=== PATIENT | female | born 1960 ===

== ENCOUNTER 2024-02-20 13:36 | Outpatient (REF) | payer MEDICARE, MEDICAID, SELFPAY ==
--- NOTE | 2024-02-20 15:42 | MHC.AU.HA1 ---
Hearing Aid Evaluation Date of Visit: 02/20/24 Historical Information: Description of Hearing: Normal sloping to moderately severe sensorineural hearing loss right, mild sloping to moderately severe sensorineural hearing loss left. Summary: Seen for evaluation. Difficulty hearing family noted. Reviewed amplification options. Recommended [facility]. Pt would like rechargeable. Would like to connect with Android phone to hear calls better. Hearing Aid Prescription: Based on the individual?s shared listening needs, communication environments, dexterity, desire for connectivity, and personal preferences, the following prescription for amplification has been made: Right ear: Make, Model, Color: Phonak Audeo L 70 R , sand beige Battery Size: Rechargeable Nurses' Association Counselor/Slim Tube: 1M Type of Earmold/Dome/CShell/SlimTip: sm vented Left ear: Make, Model, Color: Phonak Audeo L70 R , sand beige Battery Size: Rechargeable Nurses' Association Counselor/Slim Tube: 1M Type of Earmold/Dome/CShell/SlimTip: sm vented Plan of Care: Patient wishes to purchase hearing aids as prescribed Action Taken/Action Needed: Medical Clearance to be requested from PCP/ENT Comments: Pt to seek cerumen removal Ad prior to fitting. Primary Diagnosis: H90.3 Bilateral Sensorineural Hearing Loss Signature: Provider: Azar Wharton, [facility]
== END 2024-02-20 13:37 | disposition home or self-care (01) ==
LOC: HO.SH 13:36
PROVIDERS: Visit Provider Physician Assistant
DX: Z01.118 Encounter for examination of ears and hearing with other abnormal findings (principal); Z46.1 Encounter for fitting and adjustment of hearing aid; H90.3 Sensorineural hearing loss, bilateral
CPT/HCPCS: 92557; 92567; 92591

== ENCOUNTER 2024-03-25 14:09 | Outpatient (REF) | payer MEDICARE, MEDICAID, SELFPAY ==
--- NOTE | 2024-03-25 14:47 | MHC.AU.HA2 ---
Hearing Instrument Fitting- Adult- Binaural Date of Visit: 03/25/24 Summary: Here for fitting. Reports cerumen removal at urgent care. Reports right ear feels totally blocked following flushing. Otoscopy reveals visually occluding cerumen Ad, non occluding As. Cannot complete fitting today with occluding wax in the ear. María Peraza reports she has been using debrox since the flushing. As her insurance cannot be billed for wax removal by audiologists, recommended removal at PCP or returning to urgent care. Suggested using debrox prior to cerumen removal appointment to aid in removal. María Peraza reports she has tried using bulb syringe and may try that again, suggested doing so in conjunction with debrox use. She will call to schedule fitting once wax is removed. Recommendations: Recommendations: Pt to schedule fitting once ear is cleared of wax. Diagnosis Code(s): Primary Diagnosis: H90.3 Bilateral Sensorineural Hearing Loss Signature: Provider: Azar Wharton, CCC-A
== END 2024-03-25 14:10 | disposition home or self-care (01) ==
LOC: HO.HAP 14:09
PROVIDERS: Visit Provider Internal Medicine
DX: Z13.89 Encounter for screening for other disorder (principal)

== ENCOUNTER 2024-04-13 14:47 | Outpatient (REF) | payer MEDICARE, MEDICAID, SELFPAY ==
--- NOTE | 2024-04-13 16:14 | MHC.AU.HA2 ---
Hearing Instrument Fitting- Adult- Binaural Date of Visit: 04/13/24 Hearing Instruments Dispensed: Right Ear: Make, Model, Color, Serial Number: Phonak Audeo L 70 R , lesly zaldivar S#[id number] S[employer]hire Stylus Grinder Repair Warranty: 03/28/2027 [employer] Stylus Grinder Loss and Damage Warranty: 03/28/2027 [facility] Service Plan: 04/13/2025 Battery Size: Rechargeable Information Technology Director/Slim Tube: 0M Earmold/Dome/CShell/SlimTip: sm vented Type of Wax Guard: cerustop Left Ear: Make, Model, Color, Serial Number: Phonak Audeo L70 R , lesly benancy S#[id number] S[employer]hire Stylus Grinder Repair Warranty: 03/28/2027 [employer] Stylus Grinder Loss and Damage Warranty: 03/28/2027 [facility] Service Plan: 04/13/2025 Battery Size: Rechargeable Information Technology Director/Slim Tube: 0M Earmold/Dome/CShell/SlimTip: sm vented Type of Wax Guard: cerustop Accessories/Assistive Technology: Summary of Fitting: Pt. reports wax has been removed. Otoscopy clear Au. Fit with and oriented to binaural Phonak Audeo L70 R HAs. Programmed to DSL 5 adult targets. Ran feedback manager global. Reviewed maintenance and precautions. Practiced insertion and removal. Demonstrated charging. VC disabled. Paired with phone. Counseled on adjustment to amplification. Recommendations: Recommendations: Hearing instrument care and maintenance were discussed and practiced. The instrument(s) were paired to the patient's smartphone. A hearing instrument follow-up was scheduled. Diagnosis Code(s): Primary Diagnosis: H90.3 Bilateral Sensorineural Hearing Loss Signature: Provider: Azar Wharton, CCC-A
== END 2024-04-13 14:48 | disposition home or self-care (01) ==
LOC: HO.HAP 14:47
PROVIDERS: PCP Physician Assistant; Visit Provider Internal Medicine
DX: Z46.1 Encounter for fitting and adjustment of hearing aid (principal); H90.3 Sensorineural hearing loss, bilateral
CPT/HCPCS: V5011; V5020; V5160; V5261

== ENCOUNTER 2024-04-30 13:41 | Outpatient (REF) | payer MEDICARE, MEDICAID, SELFPAY ==
--- NOTE | 2024-04-30 14:17 | MHC.AU.HA3 ---
Hearing Instrument Follow-Up- Binaural Date of Visit: 04/30/24 Right Ear: Model Alfonso, Color, Serial Number: Antony Lopez L 70 R lesly S#[id number] Brace End [employer] Former Repair Warranty: 03/28/2027 [employer] Former Loss and Damage Warranty: 03/28/2027 [facility] Service Plan: 04/13/2025 Battery Size: Rechargeable Global Implementation Manager/Slim Tube: 0M Earmold/Dome/CShell/SlimTip:CAP Type of Wax Guard: cerustop Dispensed By: [facility] Date of Fittin04/13/2024 Left Ear: Model Alfonso, Color, Serial Number: Antony Hopper70 R lesly S#[id number] Brace End [employer] Former Repair Warranty: 03/28/2027 [employer] End [employer] Former Loss and Damage Warranty: 03/28/2027 [facility] Service Plan: 04/13/2025 Battery Size: Rechargeable Global Implementation Manager/Slim Tube: 0M Earmold/Dome/CShell/SlimTip: CAP Type of Wax Guard: cerustop Dispensed By: [facility] Date of Fittin04/13/24 Follow-Up Summary: Here for follow up. Reports feeling like the TV is still not loud enough. She isn't sure if the hearing aids are getting far enough into her ears. The small vented domes just fit into the aperture of her canals. Swapped to cap domes. Improvement reported, feels like she is hearing more with them. Changed acoustic settings in target, ran feedback senior safety support manager. Follow up again in 2 weeks. Needs package of cap domes. Recommendations: Recommendations: An additional follow-up was scheduled to monitor progress. Diagnosis Code(s): Primary Diagnosis: H90.3 Bilateral Sensorineural Hearing Loss Signature: Provider: Azar Wharton, [facility]
== END 2024-04-30 13:42 | disposition home or self-care (01) ==
LOC: HO.HAP 13:41
PROVIDERS: Visit Provider Physician Assistant
DX: Z13.89 Encounter for screening for other disorder (principal)

== ENCOUNTER 2024-05-21 16:00 | Outpatient (REF) | payer MEDICARE, MEDICAID, SELFPAY ==
--- NOTE | 2024-05-21 16:21 | MHC.AU.HA3 ---
Hearing Instrument Follow-Up- Binaural Date of Visit: 05/21/24 Right Ear: Alfonso, , Color, Serial Number: Antony Lopez L 70 R , lesly zaldivar S#[id number] Bookmobile Clerk Repair Warranty: 03/28/2027 [employer] Clerk Loss and Damage Warranty: 03/28/2027 [facility] Service Plan: 04/13/2025 Battery Size: Rechargeable Entry Level Staff Accountant/Slim Tube: 0M Earmold/Dome/CShell/SlimTip:CAP Type of Wax Guard: cerustop [place] [facility] [place]24 Left Ear: Alfonso, , Color, Serial Number: Antony Hopper70 R lesly S#[id number] [employer]mobile Clerk Repair Warranty: 03/28/2027 [employer] Clerk Loss and Damage Warranty: 03/28/2027 [facility] Service Plan: 04/13/2025 Battery Size: Rechargeable Entry Level Staff Accountant/Slim Tube: 0M Earmold/Dome/CShell/SlimTip: CAP Type of Wax Guard: cerustop [place] [facility] [place] Follow-Up Summary: Reports good satisfaction with aids since switching to cap domes. Provided patient with a package of the cap domes. Notes right sheet metal worker supervisor feels like it might come out of ear at times. Tail was rather curled up, put on a new tail, improvement reported, will see how it feels over time. Return with any concerns. Recommendations: Recommendations: Hearing instrument follow-up or maintenance as needed. Diagnosis Code(s): Primary Diagnosis: H90.3 Bilateral Sensorineural Hearing Loss Signature: Provider: Azar Wharton, [facility]
== END 2024-05-21 16:01 | disposition home or self-care (01) ==
LOC: HO.HAP 16:00
PROVIDERS: Visit Provider Physician Assistant
DX: Z13.89 Encounter for screening for other disorder (principal)

== ENCOUNTER 2025-03-29 14:17 | Outpatient (REF) | payer MEDICARE, MEDICAID, SELFPAY | END 2025-03-29 14:18 | disposition home or self-care (01) | LOC: HO.HAP 14:17 | PROVIDERS: Visit Provider Physician Assistant | DX: Z13.89 Encounter for screening for other disorder (principal) ==